=== PATIENT | male | born 1995 | race Caucasian/White ===

== ENCOUNTER 2019-11-23 14:39 | Inpatient (IN) ==
[2019-11-23] MEDS ORDERED: XYLOCAINE 1%/SOD BICARB 20 ML VIAL INFIL ONE (15:02)
--- NOTE | 2019-11-23 15:02 | Emergency Department Note ---
ED Provider Note Chief Complaint: "Smashed fingers in door, left hand". History of Present Illness: This patient is a 24-year-old male who presents to the Emergency Department via private vehicle for evaluation of their left second, third and fourth digit lacerations of the left hand. Patient sustained the laceration while earlier today at work, around 2 PM when the entrance door which was very heavy was caught by the wind causing it to slam and crushed his left second, third and fourth digits. They report a moderate amount of bleeding initially. They note some minimal numbness/tingling the distal extremity. They report a moderate decreased range of motion of the affected digit. He believes his tetanus is up-to-date. Pain is a 7/10. He is right-hand dominant. Medications: As noted below Allergies: None PMH: No pertinent SHx: Patient is employed and lives locally. ROS: A complete 10 review of systems was reviewed. Physical Exam: VITAL SIGNS - Vital signs and nursing notes were reviewed. Stable and afebrile. GENERAL -24-year-old male appearing his stated age who is in no acute distress. Communicates well with provider and answers questions appropriately. SKIN - There are two 1.5 cm lacerations to the dorsum of the patient's second a nd third digits of the left hand just proximal to the PIP joints. Small subcentimeter laceration to the finger pad of the left fourth digit. Subconjunctival hemorrhage developing to the left fourth digit with cuticle bubbling secondary to contusion. The edges gape apart with traction. No foreign bodies appreciated. Upon further examination there are no deep structures including vessel, tendon, or bony structures appreciated. There is no active bleeding noted. MUSCULOSKELETAL - Laceration as described above. +5/5 strength appreciated of the affected digit. Full range of motion of the affected digit. NEUROLOGIC - Spinothalamic tract was found to be intact with ability to discriminate sharp versus dull sensation. No sensory defects of the dorsal column were appreciated utilizing light touch for evaluation. VASCULAR - Capillary refill was brisk. IMAGING: XR hand LT min 3V routine CLINICAL HISTORY: Left 2nd, 3rd, 4th digit crush injury COMPARISON: None. DISCUSSION: Transverse fracture middle phalanx left third finger. Slight angulation although bony apposition is good. Soft tissue disruption. No evidence of dislocation. IMPRESSION: Transverse fracture distal aspect middle phalanx of third finger. ACT 112: Negative or not required by law. The above report was generated using voice recognition software. It may contain grammatical, syntax or spelling errors. Electronically signed by: Matt Elizondo M.D. 11/23/2019 3:31 PM ED Course: Patient was seen and evaluated by myself. Risks and benefits of performing primary wound closure versus no repair were discussed with the patient who verbalizes understanding. X-rays were obtained. This is likely an open fracture. Case discussed with the on-call orthopedic surgeon, Dr. Gupta. He came to bedside. Patient was taken to the operative suite for further evaluation and management as there is concern for open fracture and possible tendon injury. 2 g of Ancef were ordered. Baseline labs were also obtained. There is no leukocytosis or anemia. No emergent metabolic disturbance. Please refer to further documentation regarding his stay. In the evaluation and treatment of this patient, the following differential diagnoses were considered: Finger Fracture, Finger Dislocation, Finger Sprain, Finger Contusion, Jersey Finger, or Mallet Finger. Impression & Plan Finger laceration, Open fracture of middle phalanx of finger of left hand, Crushing injury of left index finger, Crushing injury of left ring finger, Crushing injury of left middle finger Past Med/Surg History Medical History No pertinent past medical history Surgical History No pertinent past surgical history Social History Preferred Language: Kinyarwanda Communication Ability: Effective Stopper Setter Required: No Beliefs That Will Affect Care: None marital status: Current Living Situation: Spouse Other Information That Helps Us Care for You: No Feels Safe at Home: Yes Safety Concerns: Feels Safe At This Time Smoking Status: Current every day smoker Tobacco Type: cigarettes ; Cigarettes Per Day: 3 ; Do You Dip or Chew Tobacco: No ; Hx Alcohol Use: Yes Alcohol type: beer Hx Substance Use: No Results & Data Vital Signs Vital Signs - 24 hr 11/23/19 16:13 11/23/19 16:25 Temperature 37 C Temperature Source Oral Pulse Rate 95 H Pulse Rate [Left Finger] 83 Pulse Strength [Left Finger] Normal Respiratory Rate 18 18 Respiratory Effort / Characteristics Non-Labored Spontaneous Respiratory Depth Normal Respiratory Pattern Regular Blood Pressure 137/75 Blood Pressure [Left Arm] 127/79 Blood Pressure Mean [Left Arm] 95 Blood Pressure Position [Left Arm] Sitting Pulse Oximetry 98 90 Oxygen Delivery Method Room Air Room Air Laboratory Data Result diagrams: 11/23/19 16:11 11/23/19 16:11 Lab Results 11/23/19 11/23/19 Range/Units 16:11 16:11 WBC 5.53 (4.8-10.8) K/uL RBC 5.12 (4.7-6.1) M/uL Hgb 15.3 (14.0-18.0) g/dL Hct 43.2 (42-52) % MCV 84.4 (80-100) fL MCH 29.9 (25-34) pg MCHC 35.4 (32-36) g/dL RDW Std Deviation 37.9 (36.4-46.3) fL RDW Coeff of Geovany 12.4 (11.5-14.5) % Plt Count 220 (130-400) K/uL MPV 9.7 (7.4-10.4) fL Immature Gran % (Auto) 0.2 % Neut % (Auto) 65.4 % Lymph % (Auto) 27.8 % Coos % (Auto) 5.2 % Eos % (Auto) 0.7 % Baso % (Auto) 0.7 % Immature Gran # (Auto) 0.01 (0.00-0.02) K/uL Neut # (Auto) 3.61 (1.4-6.5) K/uL Lymph # (Auto) 1.54 (1.2-3.4) K/uL Coos # (Auto) 0.29 (0.11-0.59) K/uL Eos # (Auto) 0.04 (0-0.5) K/uL Baso # (Auto) 0.04 (0-0.2) K/uL Sodium 136 (136-145) mmol/L Potassium 3.4 L (3.5-5.1) mmol/L Chloride 103 (98-107) mmol/L Carbon Dioxide 27 (21-32) mmol/L Anion Gap 6.0 (3-11) BUN 11 (7-18) mg/dl Creatinine 0.90 (0.6-1.4) mg/dl Est Cr Clr Drug Dosing 108.2 ml/min Est GFR ( Amer) 136.1 Est GFR (Non-Af Amer) 117.5 BUN/Creatinine Ratio 12.3 (10-20) Glucose 96 (70-99) mg/dl Calcium 9.3 (8.5-10.1) mg/dl Total Bilirubin 0.6 (0.2-1) mg/dl AST 12 L (15-37) U/L ALT 32 (12-78) U/L Alkaline Phosphatase 89 (45-117) U/L Total Protein 9.0 H (6.4-8.2) gm/dl Albumin 4.7 (3.4-5.0) gm/dl Globulin 4.3 H (2.5-4.0) gm/dl Albumin/Globulin Ratio 1.1 (0.9-2) Administered Medications Discontinued Medications Bupivacaine HCl (Marcaine 0.5% Mpf) Confirm Administered Dose 30 ml .ROUTE .[place] ONE Stop: 11/23/19 16:05 Last Admin: 11/23/19 17:33 Dose: 8.5 ml Documented by: [id number] Cefazolin Sodium (Ancef 2000mg) 2,000 mg in 15 mls @ 3.75 mls/min IV NOW STA Stop: 11/23/19 15:42 Last Admin: 11/23/19 16:11 Dose: 3.75 mls/min Documented by: [id number] Cefazolin Sodium (Ancef 2000mg) 2,000 mg in 15 mls @ 3.75 mls/min IV Q8H [facility]; Protocol Stop: 11/25/19 00:00 Last Admin: 11/24/19 08:22 Dose: 3.75 mls/min Documented by: [id number] Cosigned by: [id number] Admin: 11/24/19 00:06 Dose: 3.75 mls/min Documented by: [id number] Lidocaine HCl (Buffered Lidocaine 1%) 20 ml INFIL NOW ONE Stop: 11/23/19 15:03 Last Admin: 11/23/19 15:07 Dose: 20 ml Documented by: [id number] Lidocaine HCl (Xylocaine 1% (Local)) Confirm Administered Dose 20 ml .ROUTE .LogRhythm ONE Stop: 11/23/19 16:05 Last Admin: 11/23/19 17:35 Dose: 8.5 ml Documented by: [id number] Oxycodone/Acetaminophen (Percocet 5mg/325mg) 1 - 2 tab PO Q4H PRN PRN Reason: Pain Stop: 12/07/19 18:46 Last Admin: 11/24/19 08:34 Dose: 2 tab Documented by: [id number] Cosigned by: [id number] Admin: 11/24/19 04:29 Dose: 2 tab Documented by: [id number] Pantoprazole Sodium (Protonix) 40 mg PO QAM PILI Stop: 11/27/19 09:01 Last Admin: 11/24/19 08:33 Dose: 40 mg Documented by: [id number] Cosigned by: [id number] Discharge Plan Visit Data *Final* Discharge Date/Time: 11/23/19 16:13 Chief Complaint: Laceration/Cut (Suture/Dermabond) Stated Complaint: SMASHED FINGERS IN DOOR, L HAND ED Provider: Ladi Scruggs ED Midlevel Provider: Erasmo Tomas Discharge Problem: Finger laceration, Open fracture of middle phalanx of finger of left hand, Crushing injury of left index finger, Crushing injury of left ring finger, Crushing injury of left middle finger Patient Disposition: Admitted As Inpatient Condition: Good Discharge Instructions Interventions: ED Discharge Assessment Last Done: 11/23/19 16:13
--- NOTE | 2019-11-23 15:32 | XRay Report ---
XR hand LT min 3V routine CLINICAL HISTORY: Left 2nd, 3rd, 4th digit crush injury COMPARISON: None. DISCUSSION: Transverse fracture middle phalanx left third finger. Slight angulation although bony dee osition is good. Soft tissue disruption. No evidence of dislocation. IMPRESSION: Transverse fracture distal aspect middle phalanx of third finger. ACT 112: Negative or not required by law. The above report was generated using voice recognition software. It may contain grammatical, syntax or spelling errors. Electronically signed by: Matt Elizondo M.D. 11/23/2019 3:31 PM
[2019-11-23] MEDS ORDERED: CEFAZOLIN 2000MG 2,000 MG/15 ML SYR IV STA (15:39)
[2019-11-23] MEDS ORDERED: LIDOCAINE HCL 1% 20 ML VIAL ONE (16:04)
[2019-11-23] MEDS ORDERED: BUPIVACAINE 0.5 % 5 MG/1 ML MPF 30ML VIAL ONE (16:04)
[2019-11-23] MEDS ORDERED: LIDOCAINE HCL 2% 2 ML VIAL/AMP(20MG/ML) INFIL ONE (16:06)
[2019-11-23] MEDS ORDERED: PROPOFOL IV EMULSION 10 MG/ML 20 ML VIAL IV ONE ×2 (16:06→16:53)
[2019-11-23] MEDS ORDERED: fentaNYL citrate 100 MCG/2 ML VIAL ONE (16:07)
[2019-11-23] MEDS ORDERED: MIDAZOLAM HCL 1 MG/ML 2ML VIAL ONE (16:07)
--- NOTE | 2019-11-23 16:07 | History & Physical Report ---
Date of Service November 23, 2019 Assessment & Plan (1) Crushing injury of finger(s): Patient was evaluated by Dr. Kerr. He recommends surgical intervention to correct the fracture. He also recommends washing out the laceration sites and repairing any tendon if injury/dysfunction noted. Informed consent for I&D of left hand open fracture with percutaneous pinning and possible extensor tendon repair. Patient agreed and signed consent. We will proceed to OR when room available. Patient will be kept overnight for IV ABX and pain control. 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 Pt states that he has a noticable deformity of middle finger. He states that he has limited ROM in the finger. He denies numbness/tingling, fever, chills, sweats, lethargy, CP, SOB, nausea or vomiting. Allergies Allergy/AdvReac Type Severity Reaction Status Date / Time No Known Allergies Allergy Unverified 11/23/19 16:15 Home Medications Home Medications Medication Instructions Recorded Confirmed Type No Known Home Medications 11/23/19 11/23/19 History Past Med/Surg History Social History Feels Safe at Home: Yes Smoking Status: Current every day smoker Review of Systems All systems reviewed & are unremarkable except as noted in HPI & below Physical Exam Physical Exam: Left hand: rotational deformity of left 3rd digit with dorsal laceration over fracture site. Also laceration to dorsal surface of 2nd finger between DIP and PIP. Decreased regrinder strength. NV intact. Mild venous bleeding. Periph pulses palpable. Cap refill Brisk. Able to flex and extend in DIP, PIP and MCP of all digits. Results & Data Vital Signs (Past 12 Hours) Vital Signs Temp Pulse Resp BP Pulse Ox 11/23/19 14:46 36.9 C 92 H 20 139/81 99 Supervising Physician Co-Signing Physician Notes I saw and examined the patient. Please see separate orthopedic consult note. Agree with above.
[2019-11-23 16:21] LABS: Basophils # (auto) 0.04 K/uL (0-0.2); Basophils % (auto) 0.7 %; Eosinophils # (auto) 0.04 K/uL (0-0.5); Eosinophils % (auto) 0.7 %; Hematocrit (blood only) 43.2 % (42-52); Hemoglobin 15.3 g/dL (14.0-18.0); Immature Granulocytes # (auto) 0.01 K/uL (0.00-0.02); Immature Granulocytes % (auto) 0.2 %; Lymphocytes # (auto) 1.54 K/uL (1.2-3.4); Lymphocytes % (auto) 27.8 %; Mean Corpuscular Hemoglobin 29.9 pg (25-34); Mean Corpuscular Hgb Conc 35.4 g/dL (32-36); Mean Corpuscular Volume 84.4 fL (80-100); Mean Platelet Volume 9.7 fL (7.4-10.4); Monocytes # (auto) 0.29 K/uL (0.11-0.59); Monocytes % (auto) 5.2 %; Neutrophils # (auto) 3.61 K/uL (1.4-6.5); Neutrophils % (auto) 65.4 %; Platelet Count 220 K/uL (130-400); RDW Coefficient of Variation 12.4 % (11.5-14.5); RDW Standard Deviation 37.9 fL (36.4-46.3); Red Blood Count 5.12 M/uL (4.7-6.1); White Blood Count 5.53 K/uL (4.8-10.8)
--- NOTE | 2019-11-23 16:26 | Orthopedic Consultation ---
Date of Consultation November 23, 2019 Assessment & Plan (1) Open fracture of middle phalanx of finger of left hand: I discussed with the patient that he has an open fracture of the long finger. The fracture is displaced and there is questionable laceration of the extensor tendon since it is just below the laceration. My recommendation is for an operative irrigation and debridement of the open fracture with closed reduction and percutaneous pinning, possible extensor tendon repair. Risks and benefits of the surgery were discussed in detail. Patient elects to proceed with surgery. We will plan on admitting him overnight after surgery for IV antibiotics given the open fracture. We will also plan on repairing the laceration over his index finger and decompressing his subungual hematoma. All of this can be done under digital block. He has had nothing to eat today and had coffee at 1 PM. 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 He sustained a crush injury to these 3 fingers. He presented the emergency room. X-rays were obtained showing open fracture of the middle phalanx of the long finger. Orthopedics was consulted. Patient was seen and examined in the emergency room. He reports some numbness in the tips of the index long and ring fingers worst in the long and ring fingers. Denies any previous problems with the fingers. Allergies Allergy/AdvReac Type Severity Reaction Status Date / Time No Known Allergies Allergy Unverified 11/23/19 16:15 Home Medications Home Medications Medication Instructions Recorded Confirmed Type No Known Home Medications 11/23/19 11/23/19 History Patient History Social History Feels Safe at Home: Yes Smoking Status: Current every day smoker Physical Exam Physical Exam: Pleasant young male healthy appearing in no apparent distress. Left hand exam reveals deformity of the left long finger with angulation in an ulnar direction of the distal phalanx. There is a laceration on the dorsal aspect of the middle phalanx about 1-1/2 cm in length. He is slowly oozing blood from this wound. He is unable to fire the flexor or extensor tendons to the index middle or long finger secondary to pain. Decreased sensation to light touch over the tips of the ring middle and index fingers, worst over the ring and middle fingers. He has a subungual hematoma of the ring finger with bleeding underneath the eponychial fold. He also has some bleeding noted on the volar pulp of the finger. However there are no volar lacerations. On the index finger he has a superficial laceration of about 1 cm in length over the middle phalanx. Results & Data ([facility]) Vital Signs (Past 12 Hours) Vital Signs Temp Pulse Resp BP Pulse Ox 11/23/19 16:13 95 H 18 137/75 98 11/23/19 14:46 36.9 C 92 H 20 139/81 99 Diagnostic Findings X-rays 3 views of the left hand done in the emergency room demonstrate a transverse fracture through the middle phalanx just proximal to the DIP joint with angulation. No other fractures are visualized.
[2019-11-23] MEDS ORDERED: fentaNYL citrate 100 MCG/2 ML VIAL IV PRN (16:35)
[2019-11-23] MEDS ORDERED: ONDANSETRON INJ 2 MG/ML 2 ML VIAL IV PRN ×2 (16:35→18:47)
[2019-11-23] MEDS ORDERED: ATROPINE SULFATE 0.1 MG/ML 10ML SYR IV PRN (16:35)
[2019-11-23] MEDS ORDERED: ePHEDrine sulfate 50 MG/ML AMP IV PRN (16:35)
[2019-11-23] MEDS ORDERED: HYDROmorphone INJ 2 MG/ML SYR/VIAL IV PRN (16:35)
--- NOTE | 2019-11-23 16:35 | Anesthesiology Consultation ---
Date of Service November 23, 2019 Assessment & Plan ASA ASA1 Proposed Anesthesia Anesthesia Type: MAC Risk / Benefits Reviewed With: PT / POA / Parent / Guardian, Accepts Plan and Informed Consent Obtained History Surgery Operation Date: 11/23/19 13:15 Proposed Procedures p Left Hand Open Fracture Incision, Drainage and Percutaneous Pinning, possible Extensor Tendon Repair - Rajesh Kerr MD Height/Weight Height: 5 ft 5 in Weight: 62.5 kg Allergies Allergy/AdvReac Type Severity Reaction Status Date / Time No Known Allergies Allergy Unverified 11/23/19 16:15 Medications Home Medications Medication Instructions Recorded Confirmed Last Taken No Known Home Medications 11/23/19 11/23/19 Unknown NPO Date Last Intake of Fluids: 11/23/19 Time Last Intake of Fluids: 13:00 Date Last Intake of Solids: 11/22/19 Time Last Intake of Solids: 23:00 Exercise / Class Metabolic Activity 1 > 8 Run/Swim/Ski/Tennis Past Anesthesia History No Hx of Anesthesia Complications and No Family Hx of Anesthesia Complications History of PONV No Hx of PONV and No Hx of Motion Sickness Social History Smoking Status: Current every day smoker tobacco type: cigarettes Smoking cigarettes per day: 3 Do You Dip or Chew Tobacco: No Hx Alcohol Use: No Hx Substance Use: No Review of Systems denies fever/cough/ colds/ chest pain/ SOB/ LISETTE Constitutional: no fever and no chills Respiratory: no cough and no dyspnea denies LISETTE Cardiovascular: no chest pain and no dyspnea on exertion Physical Exam Vital Signs Last Vital Signs Temp 37 C 11/23/19 16:25 Pulse 83 11/23/19 16:25 Resp 18 11/23/19 16:25 BP 127/79 11/23/19 16:25 Pulse Ox 90 11/23/19 16:25 ENMT Mouth: no TMJ abnormality and no dentition abnormality Thyromental Distance: > or= 3.5 Finger Breadths Mallampati Class: II Neck neck extension not limited Respiratory normal respiratory effort; no respiratory distress Auscultation: lungs clear to auscultation bilaterally Cardiovascular Rate/Rhythm: regular rate and regular rhythm Neurologic moves all extremities Psychiatric Orientation: alert and oriented x 3 Testing Laboratory Results 11/23/19 16:11
[2019-11-23 16:38] LABS: Albumin Level 4.7 gm/dl (3.4-5.0); BUN Creatinine Ratio 12.3 (10-20); Calcium 9.3 mg/dl (8.5-10.1); Creatinine Clr Calc Pharmacy 108.2 ml/min; Est GFR (African American) 136.1; Est GFR (Non-African American) 117.5; Potassium 3.4 mmol/L (3.5-5.1)
[2019-11-23 16:41] LABS: Albumin Globulin Ratio 1.1 (0.9-2); Bilirubin,Total 0.6 mg/dl (0.2-1); Globulin 4.3 gm/dl (2.5-4.0)
[2019-11-23] MEDS ORDERED: SUCCINYLCHOLINE 100MG/5ML SYR ONE (16:44)
[2019-11-23] MEDS ORDERED: ROCURONIUM BROMIDE 10 MG/ML 5 ML VIAL ONE (16:44)
--- NOTE | 2019-11-23 18:20 | Fluoroscopy Report ---
FL finger LT 2V HISTORY: 24 years-old Male ORIF LEFT 3RD FINGER acute fracture of the left third middle phalanx COMPARISON: Left hand radiographs 11/23/2019 TECHNIQUE: 3 spot fluoroscopic images of the left third finger were obtained utilizing 1 minute and 2 9 seconds fluoroscopy time FINDINGS: Interval placement of two K wires fixating the previously noted third middle phalangeal fracture. The re is satisfactory near-anatomic alignment. Expected postprocedural soft tissue swelling. IMPRESSION: Fluoroscopic assistance as above. Please see operative report for further details. ACT 112: Negative or not required by law. The above report was generated using voice recognition software. It may contain grammatical, syntax o r spelling errors. Electronically signed by: Donavon Cisse M.D. 11/23/2019 6:18 PM
--- NOTE | 2019-11-23 18:36 | Post Operative Brief Note ---
Immediate Post Op Note v1 Date of Surgery November 23, 2019 Pre & Post Diagnosis Operation Date: 11/23/19 13:15 Pre-Op Diagnosis: Open fracture of middle phalanx of finger of left hand Post-Op Diagnosis: Open fracture of middle phalanx of finger of left hand I identified the patient and participated in the time-out.: Yes Procedure Operation Date: 11/23/19 13:15 Actual Procedures p Irrigation and debridement of left open middle phalanx fracture, open reduction and internal fixation of left open middle finger phalanx, extensor tendon repair left middle finger, trephination left ring nail bed, irrigation and debridement and suture repair of left index finger laceration(Left) - Rajesh Kerr MD Surgeon Rajesh Kerr MD Housekeeping Supervisor ANDREW Lee PA-C Estimated Blood Loss 20 Findings Consistent with Post-Op Diagnosis Anesthesia Type Local Complications none Disposition Accompanied Patient To Recovery: No Disposition: Recovery Room
[2019-11-23] MEDS ORDERED: ALUMINUM/MAGNESIUM SUSP 30 ML UDC PO PRN (18:47)
[2019-11-23] MEDS ORDERED: METOCLOPRAMIDE HCL INJ 5 MG/ML 2 ML VIAL IV PRN (18:47)
[2019-11-23] MEDS ORDERED: ACETAMINOPHEN 325 MG TAB PO PRN (18:47)
[2019-11-23] MEDS ORDERED: DiphenhydrAMINE HCL 50 MG/ML VIAL IV PRN (18:47)
--- NOTE | 2019-11-23 18:47 | Operative Report ---
Post Operative Report Pre & Post Diagnosis Operation Date: 11/23/19 13:15 Pre-Op Diagnosis: Open fracture of middle phalanx of finger of left hand Post-Op Diagnosis: Open fracture of middle phalanx of finger of left hand I identified the patient and participated in the time-out.: Yes Procedure Operation Date: 11/23/19 13:15 Actual Procedures p Irrigation and debridement of left open middle phalanx fracture, open reduction of middle finger phalanx, extensor tendon repair left middle finger, trephination left ring nail bed, suture repair of left index finger laceration(Left) - Rajesh Kerr MD Surgeon Rajesh Kerr MD Outbound Telemarketer ANDREW Lee PA-C Estimated Blood Loss 20 Findings Consistent with Post-Op Diagnosis Specimens none Complications none Disposition Accompanied Patient To Recovery: Yes Disposition: Recovery Room Description of Procedure I was present during the entire case assisting with wound closure and dressing application. Please see Dr. Kerr procedure note for specifics of the case. I attest to the content of the Intraoperative Record and any orders documented therein. Any exceptions are noted below.
[2019-11-23] MEDS ORDERED: SODIUM CHLORIDE 0.9% 1000ML 1,000 ML IV SCH (19:00)
--- NOTE | 2019-11-23 19:40 | XRay Report ---
XR finger(s) LT min 2V HISTORY: 24 years-old Male post op status post fixation of a left third finger fracture COMPARISON: Left hand radiographs of same day TECHNIQUE: 2 views of the left hand FINDINGS: There are 2 K wires fixating the previously noted acute fracture of the third middle phalanx with imp roved near anatomic alignment. Expected soft tissue swelling is noted with overlying casting material . IMPRESSION: Improved alignment of the third middle phalangeal fracture status post ORIF. ACT 112: Negative or not required by law. The above report was generated using voice recognition software. It may contain grammatical, syntax o r spelling errors. Electronically signed by: Donavon Cisse M.D. 11/23/2019 7:38 PM
--- NOTE | 2019-11-23 20:18 | Anesthesiology Progress Note ---
Date of Service November 23, 2019 Anesthesia Post Procedure Vital Signs Vital Signs: Temp Pulse Pulse Pulse Resp BP BP 11/23/19 20:11 36.7 C 75 16 108/64 11/23/19 19:35 37.2 C 72 14 106/65 11/23/19 19:25 37.1 C 71 15 119/65 11/23/19 19:15 37.1 C 64 11 L 103/56 L 11/23/19 19:05 68 12 109/66 11/23/19 18:55 67 16 108/58 L 11/23/19 18:48 37.0 C 78 10 L 98/56 L 11/23/19 16:25 37 C 83 18 127/79 11/23/19 16:13 95 H 18 137/75 11/23/19 14:46 36.9 C 92 H 20 139/81 Pulse Ox 11/23/19 20:11 98 11/23/19 19:35 98 11/23/19 19:25 97 11/23/19 19:15 98 11/23/19 19:05 98 11/23/19 18:55 97 11/23/19 18:48 99 11/23/19 16:25 90 11/23/19 16:13 98 11/23/19 14:46 99 Transfer of Care Handoff Completed per policy Notes Mental Status: alert / awake / arousable and participated in evaluation Patient Amnestic to Procedure: Yes Nausea / Vomiting: adequately controlled Pain: adequately controlled Airway Patency, RR, SpO2: stable & adequate BP & HR: stable & adequate Hydration State: stable & adequate Anesthetic Complications: no major complications apparent and Pt Satisfied with anesthetic care
[2019-11-24] MEDS: CEFAZOLIN 2000MG 2,000 MG/15 ML SYR IV SCH ×2 (00:06→08:22)
--- NOTE | 2019-11-24 00:25 | Operative Report ---
DATE OF OPERATION: 11/23/2019 PREOPERATIVE DIAGNOSES: 1. Open fracture of the middle phalanx of the left middle finger. 2. Extensor tendon laceration, left middle finger. 3. Laceration of left index finger. 4. Left ring finger subungual hematoma. POSTOPERATIVE DIAGNOSES: 1. Open fracture of the middle phalanx of the left middle finger. 2. Extensor tendon laceration, left middle finger. 3. Laceration of left index finger. 4. Left ring finger subungual hematoma. OPERATIONS PERFORMED: 1. Irrigation and debridement of left open middle phalanx fracture. 2. Open reduction internal fixation of open left middle phalanx fracture. 3. Extensor tendon repair, left middle finger. 4. Trephination of the subungual hematoma of the left ring finger. 5. Irrigation and debridement and suture repair of the left index finger laceration. SURGEON: Rajesh Kerr MD GLOST TILE SHADER: Lynsey Lee. ESTIMATED BLOOD LOSS: 20 mL. SPECIMENS: None. COMPLICATIONS: None. IMPLANTS: Two 0.035 inch K wires. 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 He sustained the above injuries. I saw him in the Emergency Room where he reported his tetanus was up to date and received 2 grams of IV cefazolin. I reviewed the above diagnosis with the patient and recommended surgical intervention to decrease the risk of infection as well as to stabilize this displaced open middle phalanx fracture and repair of his extensor tendon as well as take care of his subungual hematoma and his index finger laceration. After reviewing all the risks and benefits of surgery, alternatives to surgery and expected outcomes, he elected to proceed. He understands that there is a high likelihood of stiffness in the middle finger secondary to the injury. After answering all of his questions, he signed the informed consent form. OPERATIVE FINDINGS: The laceration on the dorsal aspect of the index finger was extended to expose the entire zone of injury. There was a laceration involving the central and ulnar aspect of the distal extensor tendon insertion. There was an open fracture of the middle phalanx which was extraarticular. The open fracture was irrigated and debrided. The fracture was then stabilized using crossing 0.035 inch K-wires. The extensor tendon laceration was then repaired using 4-0 Vicryl sutures. The skin was closed with 4-0 nylon sutures. The nail of the left ring finger was trephinated using an 18 gauge needle. The hematoma underneath the eponychial fold was also decompressed. Finally, the index finger laceration was irrigated, debrided and explored. There was a small rent in the extensor tendon, a couple about 3 mm in diameter that was not repairable. The remainder of the extensor tendon was intact and he had intact function. DESCRIPTION OF THE OPERATION: The patient was identified in the preoperative holding area where his surgical site was marked. He was brought back to the main operating room, having already received his IV antibiotics within 60 minutes of incision in the Emergency Room. We then performed a timeout and subsequently performed a digital block of the index, middle and ring fingers of the left hand using sterile technique. A total of 17 mL of a 1:1 mixture of lidocaine 1% without epinephrine and Marcaine 0.5% without epinephrine was used. The hand in the upper extremities were then prepped and draped in the normal sterile fashion. Prior to surgical incision multidisciplinary timeout was called. All in the room were in agreement. I began by exploring his index finger laceration. This was oblique in nature and was on the dorsum of the finger just dorsal to the DIP joint. This did go down to the extensor tendon insertion, which had a small avulsion fracture involving about 4 mm of the central portion of the extensor tendon. The DIP joint was visible through this rent. The patient, however, was able to fire his extensor tendon to command and resist against extension. I did not feel that a repair was likely to change his outcome and that the benefits did not outweigh the risks and therefore I elected to simply irrigate this out and closed it with 4-0 nylon sutures, a total of 4 simple sutures were used for the index finger. Next, the subungual hematoma was trephinated on his ring finger. This was done at the level of the lunula where the hematoma was visible. Small amount of blood was squeezed out through the hole. I then made a small nidia in the epidermis of the eponychial fold both radially and ulnarly to decompress a hematoma under the skin and again squeeze the blood out of his finger. Next, I turned my attention to the long finger. This wound was irrigated out and explored. There was an open fracture at the base of the wound with tearing of the extensor tendon involving the central as well as the ulnar lateral band. The radial lateral band was intact. The fracture was slightly displaced. The wound was not contaminated. The wound was then irrigated out with a total of 2 liters of sterile saline. I then reduced the fracture under fluoroscopic guidance. 2 Crossing K-wires were then placed. While placing the first K-wire this resulted in a slight malreduction. Therefore, I removed the first 2 K-wires and re-reduced the fracture. I then placed the more ulnar K-wire first and then drilled a new hole for the more radial K-wire which resulted in anatomic reduction of the fracture. The pins were then bent back at the skin and clipped. Jurgan balls were placed. I then turned my attention towards the extensor tendon repair. Due to poor visibility of the ends of the extensor tendon, I elected to extend the incision using, Wally style zigzag incisions both proximally and distally, 1.5 cm in each direction. I could then clearly visualize the extensor tendon. A 4-0 Vicryl suture was used in a [id number] fashion with a total of 4 sutures two of which were longitudinal in nature to reapproximate the ends and the other 2 which were side to side in nature to bring the lateral bands in reapproximation with one another distally. Excellent repair was maintained. The repair was then tested by gently flexing and extending the DIP joint passively and the repair held nicely. At this point, the wound was once again irrigated with copious amounts of normal saline. The skin was closed using 4-0 nylon sutures. Sterile dressings were applied. The patient was then transferred to recovery room in stable condition. Of note, we did ask the patient once the digital block was in place to fire his FDS, FDP to each of the 3 fingers and he was able to do this, which we had not been able to examine prior to the digital blocks secondary to pain. Extensor tendons were intact in the index and ring finger functionally as well. However, the long finger was not as stated above. POSTOPERATIVE COURSE: The patient will be admitted overnight for IV antibiotics. He will keep his splint on for 1 week and then follow up in our clinic for a dressing change. He will be allowed to begin some gentle range of motion exercises of the PIP joint at that time. We plan on leaving the sutures in for 2 weeks. I attest to the content of the Intraoperative Record and any orders documented therein. Any exception s are noted below.
[2019-11-24] MEDS: OXYCODONE/ACETAMINOPHEN 5mg/325mg TAB PO PRN ×2 (04:29→08:34)
[2019-11-24] MEDS ORDERED: PANTOprazole 40 MG TAB PO SCH (09:00)
--- NOTE | 2019-11-24 09:05 | Anesthesiology Progress Note ---
Date of Service November 24, 2019 Anesthesia Post Procedure Vital Signs Vital Signs: Temp Pulse Pulse Pulse Resp BP BP 11/24/19 07:09 36.7 C 61 18 128/56 L 11/24/19 03:52 36.8 C 66 18 106/68 11/23/19 23:46 36.8 C 70 18 120/77 11/23/19 22:33 36.9 C 66 16 120/70 11/23/19 21:30 36.7 C 71 16 118/65 11/23/19 20:36 36.8 C 75 16 122/77 11/23/19 20:11 36.7 C 75 16 108/64 11/23/19 19:35 37.2 C 72 14 106/65 11/23/19 19:25 37.1 C 71 15 119/65 11/23/19 19:15 37.1 C 64 11 L 103/56 L 11/23/19 19:05 68 12 109/66 11/23/19 18:55 67 16 108/58 L 11/23/19 18:48 37.0 C 78 10 L 98/56 L 11/23/19 16:25 37 C 83 18 127/79 11/23/19 16:13 95 H 18 137/75 11/23/19 14:46 36.9 C 92 H 20 139/81 Pulse Ox 11/24/19 07:09 98 11/24/19 03:52 98 11/23/19 23:46 98 11/23/19 22:33 98 11/23/19 21:30 97 11/23/19 20:36 98 11/23/19 20:11 98 11/23/19 19:35 98 11/23/19 19:25 97 11/23/19 19:15 98 11/23/19 19:05 98 11/23/19 18:55 97 11/23/19 18:48 99 11/23/19 16:25 90 11/23/19 16:13 98 11/23/19 14:46 99 Notes Mental Status: alert / awake / arousable and participated in evaluation Patient Amnestic to Procedure: Yes Nausea / Vomiting: adequately controlled Pain: adequately controlled Airway Patency, RR, SpO2: stable & adequate BP & HR: stable & adequate Hydration State: stable & adequate Anesthetic Complications: no major complications apparent and Pt Satisfied with anesthetic care
--- NOTE | 2019-11-24 09:58 | Orthopedic Progress Note ---
Date of Service November 24, 2019 Assessment & Plan (1) Laceration of finger, index: Keep dressings in place. Pain control with PO meds Infection prophylaxis with ABX Ice with EZ wrap Work on mobility of digits May change band aid on 4th finger daily Bag when showering No lifting greater than 5 lbs with Left hand Follow up at [facility] on 12/01/19 @ 10:30 AM With questions call (2) Crushing injury of left middle finger: (3) Crushing injury of left ring finger: (4) Crushing injury of left index finger: (5) Open fracture of middle phalanx of finger of left hand: Admission and Anticipated Discharge Date Admission Date: November 23, 2019 Subjective This 24 yo M is day 1 s/p Left 2nd and 3rd finger irrigation and debridement and laceration repair with Percutaneous pinning of Left 3rd middle phalanx open fracture and extensor tendon repair, along with trephination of left 4th finger subungual hematoma after having the hand slammed in a door at [facility] yesterday afternoon. Patient states that his pain is well controlled with the PO medications. He denies chest pain, SOB, fever, chills, sweats, lethargy, numbness/tingling, nausea or vomiting. Review of Systems Review of Systems: All systems reviewed & are unremarkable except as noted in HPI & below Physical Exam Physical Exam: Left hand: Dressing were clean, dry and intact. Outer most layer of coban was changed and splint on 3rd finger was adjusted to allow for full flexion at the PIP joint. Inner sterile dressings were kept in place, except for dressing over the 4th finger was removed and band aid was applied. Patient had appropriate dexterity of digits. NV intact. Periph pulses were easily palpable. Results & Data ([facility]) Vital Signs (Past 12 Hours) Vital Signs Temp Pulse Resp BP Pulse Ox 11/24/19 07:09 36.7 C 61 18 128/56 L 98 11/24/19 03:52 36.8 C 66 18 106/68 98 11/23/19 23:46 36.8 C 70 18 120/77 98 11/23/19 22:33 36.9 C 66 16 120/70 98 Laboratory Results 11/23/19 11/23/19 Range/Units 16:11 16:11 WBC 5.53 (4.8-10.8) K/uL RBC 5.12 (4.7-6.1) M/uL Hgb 15.3 (14.0-18.0) g/dL Hct 43.2 (42-52) % MCV 84.4 (80-100) fL MCH 29.9 (25-34) pg MCHC 35.4 (32-36) g/dL RDW Std Deviation 37.9 (36.4-46.3) fL RDW Coeff of Geovany 12.4 (11.5-14.5) % Plt Count 220 (130-400) K/uL MPV 9.7 (7.4-10.4) fL Immature Gran % (Auto) 0.2 % Neut % (Auto) 65.4 % Lymph % (Auto) 27.8 % Crisp % (Auto) 5.2 % Eos % (Auto) 0.7 % Baso % (Auto) 0.7 % Immature Gran # (Auto) 0.01 (0.00-0.02) K/uL Neut # (Auto) 3.61 (1.4-6.5) K/uL Lymph # (Auto) 1.54 (1.2-3.4) K/uL Crisp # (Auto) 0.29 (0.11-0.59) K/uL Eos # (Auto) 0.04 (0-0.5) K/uL Baso # (Auto) 0.04 (0-0.2) K/uL Sodium 136 (136-145) mmol/L Potassium 3.4 L (3.5-5.1) mmol/L Chloride 103 (98-107) mmol/L Carbon Dioxide 27 (21-32) mmol/L Anion Gap 6.0 (3-11) BUN 11 (7-18) mg/dl Creatinine 0.90 (0.6-1.4) mg/dl Est Cr Clr Drug Dosing 108.2 ml/min Est GFR ( Amer) 136.1 Est GFR (Non-Af Amer) 117.5 BUN/Creatinine Ratio 12.3 (10-20) Glucose 96 (70-99) mg/dl Calcium 9.3 (8.5-10.1) mg/dl Total Bilirubin 0.6 (0.2-1) mg/dl AST 12 L (15-37) U/L ALT 32 (12-78) U/L Alkaline Phosphatase 89 (45-117) U/L Total Protein 9.0 H (6.4-8.2) gm/dl Albumin 4.7 (3.4-5.0) gm/dl Globulin 4.3 H (2.5-4.0) gm/dl Albumin/Globulin Ratio 1.1 (0.9-2)
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
== END 2019-11-24 11:16 | disposition home or self-care (01) | DRG 513 ==
LOC: ED 14:39 → OR 16:13 → 3E 18:48